=== PATIENT | female | born 1940 | race Caucasian/White ===

== ENCOUNTER 2020-04-07 19:23 | Inpatient (IN) | payer MEDICARE, OTHER ==
[~2020-04-07] VITALS: Ht 162.6 cm; Wt 60.8 kg
--- NOTE | 2020-04-07 20:07 | NUR ---
BIBS FROM HOME TO ER BED 7. AAOX4. NOT IN RESP DISTRESS. AMBULATORY. CAME IN FOR CONSTIPATION. PER PT SHE HAS BEEN HAVING BM ISSUES AND WORST TODAY. SHE IS REPORT PAIN IN HER RECTUM WHICH SHE DISCRIBES IF SHE HAVE A BRICK IN HER RECTUM. PT IS HAVING DIFFICULTY SITTING DOWN. PT IS ALSO COMPLAINING OF UNCONTROLLED WATTERY DIARRHEA AND DIFFICULTY URINATING. MD WAS AT THE BEDSIDE FOR EVAL. ORDERS RECEIVED, NOTED AND CARRIED OUT.
[2020-04-07 20:39] LABS: BASOPHILS # (AUTO) 0.1 /CMM (0.0-0.2); BASOPHILS % (AUTO) 0.5 % (0.0-2.0); HEMATOCRIT 43 % (33-45); HEMOGLOBIN 14.2 g/dL (11.5-14.8); LYMPHOCYTES # (AUTO) 0.7 /CMM (0.8-4.8); LYMPHOCYTES % (AUTO) 4.2 % (20.0-44.0); MEAN CORPUSCULAR HGB CONC 33 g/dl (31.0-36.0); MEAN CORPUSCULAR VOLUME 92 fL (82-100); MONOCYTES # (AUTO) 1.1 /CMM (0.1-1.30); MONOCYTES % (AUTO) 6.7 % (2.0-12.0); NEUTROPHILS # (AUTO) 13.9 /CMM (1.8-8.9); NEUTROPHILS % (AUTO) 88.6 % (43.0-81.0); PLATELET COUNT (AUTO) 263 /CMM (150-450); RED BLOOD CELL COUNT(AUTO) 4.65 MIL/uL (4.0-5.2); WHITE BLOOD COUNT (AUTO) 15.7 K/uL (4.3-11.0)
[2020-04-07 20:46] LABS: CREATININE 0.8 mg/dL (0.6-1.3); POTASSIUM 4.6 mmol/L (3.5-5.1)
--- NOTE | 2020-04-07 21:17 | NUR ---
URINE OUTPUT 550ML. AWARE
[2020-04-07 21:18] LABS: APPEARANCE,URINE Clear (CLEAR); BILIRUBIN,URINE Negative (NEGATIVE); BLOOD, URINE Small Ery/uL (NEGATIVE); COLOR,URINE Yellow (YELLOW); KETONES,URINE Negative (NEGATIVE); LEUKOCYTE ESTERASE ,URINE Negative (NEGATIVE); NITRITE, URINE Negative (NEGATIVE); PROTEIN,URINE Negative (NEGATIVE); UGLUCOSE Negative (NEGATIVE); UROBILINOGEN,URINE 0.2 EU/dL (0.2)
[2020-04-07] MEDS ORDERED: PIPERACILLIN /TAZOBACTAM 3.375 G VIAL IV ONE (21:27)
[2020-04-07 21:30] LABS: BACTERIA,URINE None seen /HPF (None Seen); SQUAMOUS EPITHELIAL CELL,UR Few /HPF (None Seen); WBC,URINE 0-2 /HPF (0-3)
[2020-04-07] MEDS ORDERED: PIPERACILLIN /TAZOBACTAM 3.375 G in IV D5W 50 ML IV ONE (21:30)
[2020-04-07] MEDS ORDERED: IV NS 0.9% 1,000 ML IV PRN (21:56)
[2020-04-07] MEDS ORDERED: HYDROCODONE/APAP 5/325MG 1 EACH TABLET PO PRN (22:00)
[2020-04-07] MEDS ORDERED: Z GUARD REMEDY 2 OZ OINT TP PRN (22:00)
[2020-04-07] MEDS ORDERED: MAG HYDROX/AL HYDROX/SIMETH 30 ML UDC PO PRN (22:00)
[2020-04-07] MEDS ORDERED: MORPHINE SULFATE INJ 2 MG/ML DISP.SYRIN IV PRN (22:00)
[2020-04-07] MEDS ORDERED: MAGNESIUM HYDROXIDE 30 ML UDC PO PRN (22:00)
[2020-04-07] MEDS ORDERED: ONDANSETRON HCL/PF 4 MG/2 ML VIAL IVP PRN (22:00)
[2020-04-07] MEDS ORDERED: ACETAMINOPHEN 325 MG TABLET PO PRN (22:00)
--- NOTE | 2020-04-07 22:03 | NUR ---
COVID SWAB COLLECTED. CALLED LAB FOR BILINGUAL RECRUITER
--- NOTE | 2020-04-07 22:26 | NUR ---
BED ASSIGNMENT 304-2
--- NOTE | 2020-04-07 23:05 | NUR ---
REPORT GIVEN TO ZANDER JARA FOR JOHN.
[2020-04-07 23:15] VITALS: BP 138/74
--- NOTE | 2020-04-07 23:15 | NUR ---
PRICING MANAGERMIXOLOGIST NOTE RECEIVED PATIENT VIA GURNEY. AMBULATED TO BED, STEADY GAIT. TOLERATING ROOM AIR. RESPIRATIONS ARE EVEN AND UNLABORED. NO S/S SOB NOTED. PATIENT STATES PAIN IS 8/10 IN BACK AND RECTUM. REFUSED TO HAVE PAIN MEDICATION, ASLO REFUSED HEATING PACK. EXTERNAL TELE MONITOR READS SINUS TACHYCARDIA HR 107. IN NO APPARENT DISTRESS. IV ACCESS IN LEFT HAND #20 PATENT AND SALINE LOCKED. GUTIERREZ CATHETER 16 FR IS PRESENT, DRAINING TO GRAVITY, URINE IS YELLOW AND CLEAR. INATAL PHYSICAL ASSESSMENT COMPLETED AT THIS TIME. PATIENT REFUSED SKIN ASSESSMENT. METAL SPRAYING MACHINE OPERATOR OBTAINED VITAL SIGNS AND COMPLETED BELONGINGS LIST. BED IS LOW AND LOCKED, HOB ELEVATED IN SEMI FOWLERS, SIDE RIALS UP X2. CALL LIGHT WITHIN REACH. WILL CONTINUE TO MONITOR.
--- NOTE | 2020-04-07 23:17 | NUR ---
PT TRANPORTED TO UNIT ON [address] WITH EMT AND RN AT BEDSIDE. NAD NOTED DURING TRANSPORT. PT AMBULATED FROM [facility] TO BED ON [facility].
[2020-04-08] MEDS: IV NS 0.9% 1,000 ML IV PRN ×2 (00:22→10:43)
[2020-04-08] MEDS: TEMAZEPAM 7.5 MG CAPSULE PO PRN (00:42)
--- NOTE | 2020-04-08 00:42 | NUR ---
ms rn note administered prn restoril 7.5 mg per request from patient for sleep. will continue to monitor.
[2020-04-08 04:00] VITALS: BP 156/75
[2020-04-08] MEDS ORDERED: ZOSYN IVPB 3.375 G in IV D5W 50ml IV ONE (04:00)
--- NOTE | 2020-04-08 04:15 | NUR ---
MS RN NOTE ADMINISTERED PRN TYLENOL 650MG FOR C/O HEADACHE. WILL CONTINUE TO MONITOR.
[2020-04-08] MEDS ORDERED: PIPERACILLIN /TAZOBACTAM 3.375 G VIAL IV ONE (04:48)
--- NOTE | 2020-04-08 04:51 | NUR ---
technician telecommunication systems note patient refused dvt pumps. educated but continues to refuse. will continue to monitor.
[2020-04-08] MEDS ORDERED: PIPERACILLIN /TAZOBACTAM 3.375 G in IV D5W 50 ML IV SCH (05:00)
[2020-04-08 06:54] LABS: BASOPHILS % (AUTO) 0.1 % (0.0-2.0); HEMATOCRIT 41 % (33-45); HEMOGLOBIN 13.7 g/dL (11.5-14.8); LYMPHOCYTES # (AUTO) 0.9 /CMM (0.8-4.8); LYMPHOCYTES % (AUTO) 6.5 % (20.0-44.0); MEAN CORPUSCULAR HGB CONC 34 g/dl (31.0-36.0); MEAN CORPUSCULAR VOLUME 91 fL (82-100); MONOCYTES # (AUTO) 1.2 /CMM (0.1-1.30); MONOCYTES % (AUTO) 8.6 % (2.0-12.0); NEUTROPHILS # (AUTO) 11.9 /CMM (1.8-8.9); NEUTROPHILS % (AUTO) 84.8 % (43.0-81.0); PLATELET COUNT (AUTO) 231 /CMM (150-450); RED BLOOD CELL COUNT(AUTO) 4.51 MIL/uL (4.0-5.2); WHITE BLOOD COUNT (AUTO) 14.1 K/uL (4.3-11.0)
[2020-04-08] MEDS ORDERED: BISACODYL SUPP (10 MG) 10 MG/SUPP.RECT SUPP.RECT RC PRN (07:00)
[2020-04-08 07:17] LABS: CALCIUM, SERUM 8.6 mg/dL (8.5-10.1); CREATININE 0.6 mg/dL (0.6-1.3); PHOSPHORUS 2.9 mg/dL (2.5-4.9); POTASSIUM 4.1 mmol/L (3.5-5.1)
[2020-04-08 07:21] LABS: THYROID STIMULATING HORMONE 1.535 uIU/mL (0.358-3.74)
--- NOTE | 2020-04-08 07:25 | NUR ---
television analyzer note endorse to day shift to obtain chemical prophylaxis for patient, VTE score is 3.
--- NOTE | 2020-04-08 07:26 | NUR ---
SERVICE STATION CONSOLE OPERATOR CLOSING NOTE PATIENT IN BED. TOLERATING ROOM AIR. RESPIRATIONS ARE EVEN AND UNLABORED. NO RESPIRATORY DISTRESS. C/O PAIN THROUGHOUT BUT REFUSED PAIN MEDICATIONS THAT ARE AVAILABLE. EXTERNAL TELE MONITOR READS SINUS RHYTHM HR 90S. NO DISTRESS. IV ACCESS MAINTAINED IN LEFT HAND #20 RUNNING NS@100ML/HR. GUTIERREZ CATHETER MAINTAINED, YELLOW, OUTPUT 1550ML. BED REMAINS LOW AND LOCKED, HOB ELEVATED IN SEMI FOWLERS, SIDE RIALS UP X2. CALL LIGHT WITHIN REACH. WILL ENDORSE TO NEXT SHIFT.
--- NOTE | 2020-04-08 07:45 | NUR ---
TELE/RN OPENING NOTES RECEIVED PATIENT ON BED. NO APPARENT DISTRESS NOTED. DENIES PAIN AT THIS TIME. PATIENT ON TELE MONITOR SR 96 BPM. WILL CONTINUE TO MONITOR.
[2020-04-08] MEDS: PANTOPRAZOLE 40 MG TABLET.DR PO SCH (08:35)
[2020-04-08 08:58] VITALS: BP 143/79
--- NOTE | 2020-04-08 09:00 | NUR ---
MS/RN NOTES PATIENT REFUSED TO PUT ON DVT PUMP. EXPLAINED THE RISK AND BENEFITS. WILL CONTINUE TO MONITOR.
--- NOTE | 2020-04-08 10:08 | NUR ---
Developmental Training Counselor Consult: Developmental Training Counselor social Veronica worker conducted a chart review and met with the patient at bedside for advanced care directive. Patient presented with inital pain to the back and rectum on 04/07/2020. Patient was alert and oriented x4. Patient does not have anyone to name as an emergency contact at the moment after her . Patient does not report any sign of depression after . Patient was skeptical about naming anyone as an emergency contact as she does not want to ask anyone because "she doesn't believe in that". Patient lives at home and continues to work on occasion from home to keep busy as she does not want to stop all together. Patient has friends as her support system to rely on but does not feel comfortable asking them to discuss her view on an advanced care directive. Patient reported that she has a power of instrument panel assembler on her will and will likely name that individual again. Patient seemed skeptical about an advanced care directive. SW informed her that she can look over the paperwork and if she has any questions to inform nurses that she would like to speak with social insurance adviser again. [employer] Lead
[2020-04-08] MEDS: PIPERACILLIN /TAZOBACTAM 3.375 G in IV D5W 100 ML IV SCH ×2 (10:15→17:26)
--- NOTE | 2020-04-08 10:35 | NUR ---
MS/RN NOTES PATIENT COMPLAINED OF RECTAL PAIN RATED 10/10. MORPHINE 2MG IV WAS GIVEN WILL CONTINUE TO MONITOR.
[2020-04-08 16:00] VITALS: BP 163/85
--- NOTE | 2020-04-08 17:01 | NUR ---
MS/RN NOTES TAP ENEMA WAS DONE. PATIENT HAD BOWEL MOVEMENT. MD IS AWARE. WILL CONTINUE TO MONITOR.
--- NOTE | 2020-04-08 18:42 | NUR ---
MS/RN CLOSING NOTES PATIENT IN BED. ALERT AND ORIENTED X4. PATIENT IN NO APPARENT RESPIRATORY DISTRESS NOTED. DENIES PAIN AT THIS TIME. IV ACCESS AT LEFT HAND # 20 G WITH IV FLUID OF NS 1 L AT 100 ML/HR ON AND INFUSING WELL. SEEN AND EXAMINED BY MD WITH ORDERS MADE AND CARRIED OUT. ALL DUE MEDICATION WAS GIVEN. SAFETY PRECAUTION IN PLACED. CHECKED PATIENT EVERY 2 HOURS. BED IN LOWEST POSITION AND LOCKED. SIDE RAILS UP X 2. CALL LIGHT WITHIN REACH. WILL ENDORSED TO SUGAR SAMPLER FOR JOHN.
--- NOTE | 2020-04-08 19:55 | NUR ---
MS RN NOTES RECEIVED PATIENT IN BED. ALERT AND ORIENTED X4. PATIENT IN NO APPARENT RESPIRATORY DISTRESS NOTED. DENIES PAIN AT THIS TIME. IV ACCESS AT LEFT HAND # 20 G WITH IV FLUID OF NS 1 L AT 100 ML/HR ON AND INFUSING WELL. GUTIERREZ CATHETER INTACT AND DRAINING WELL WITH A SAFETY MEASURES IN PLACE. CALL LIGHT WITH IN EASY REACH. BED IN LOW LOCKED POSITIONED. ALL NEEDS ANTICIPATED. WILL CONTINUE TO MONITOR ACCORDINGLY.
[2020-04-08 20:00] VITALS: BP 136/67
[2020-04-08 20:19] VITALS: BP 136/67
[2020-04-09] MEDS: PIPERACILLIN /TAZOBACTAM 3.375 G in IV D5W 100 ML IV SCH ×3 (02:02→17:15)
[2020-04-09] MEDS: IV NS 0.9% 1,000 ML IV PRN (05:05)
--- NOTE | 2020-04-09 06:07 | NUR ---
MS RN NOTES ALL NEEDS ATTENDED AND MET, ABLE TO REST AND SLEPT AT INTERVALS, PATIENT IN BED. ALERT AND ORIENTED X4. PATIENT IN NO APPARENT RESPIRATORY DISTRESS NOTED. DENIES PAIN AT THIS TIME. IV ACCESS AT LEFT HAND # 20 G WITH IV FLUID OF NS 1 L AT 100 ML/HR ON AND INFUSING WELL. GUTIERREZ CATHETER INTACT AND DRAINING WELL WITH A SAFETY MEASURES IN PLACE. CALL LIGHT WITH IN EASY REACH. BED IN LOW LOCKED POSITIONED. ALL NEEDS ANTICIPATED. WILL ENDORSE TO AM NURSE FOR CONTINUITY OF CARE.
[2020-04-09 07:00] LABS: BASOPHILS % (AUTO) 0.4 % (0.0-2.0); EOSINOPHILS % (AUTO) 0.7 % (0.0-6.0); HEMATOCRIT 37 % (33-45); HEMOGLOBIN 12.4 g/dL (11.5-14.8); LYMPHOCYTES # (AUTO) 1.3 /CMM (0.8-4.8); LYMPHOCYTES % (AUTO) 12.2 % (20.0-44.0); MEAN CORPUSCULAR HGB CONC 33 g/dl (31.0-36.0); MEAN CORPUSCULAR VOLUME 91 fL (82-100); MONOCYTES # (AUTO) 1.1 /CMM (0.1-1.30); NEUTROPHILS # (AUTO) 8.2 /CMM (1.8-8.9); NEUTROPHILS % (AUTO) 76.7 % (43.0-81.0); PLATELET COUNT (AUTO) 223 /CMM (150-450); RED BLOOD CELL COUNT(AUTO) 4.06 MIL/uL (4.0-5.2); WHITE BLOOD COUNT (AUTO) 10.7 K/uL (4.3-11.0)
--- NOTE | 2020-04-09 07:15 | NUR ---
MS/RN - Assessment Patient is alert and oriented x 4, states feeling better, afebrile, denies pain, no apparent distress, stable on room air. IVF NS at 100 ml/hr infusing well on the left hand with no signs of infiltration. Ehrnandez catheter in place for urinary retention. Morning labs reviewed, no critical results seen. Fall and aspiration precautions maintained. Will continue with current medical management.
[2020-04-09 07:25] LABS: CALCIUM, SERUM 8.3 mg/dL (8.5-10.1); CREATININE 0.6 mg/dL (0.6-1.3); POTASSIUM 3.6 mmol/L (3.5-5.1)
[2020-04-09] MEDS: PANTOPRAZOLE 40 MG TABLET.DR PO SCH (07:41)
[2020-04-09 08:00] VITALS: BP 116/67
[2020-04-09] MEDS ORDERED: LEVO500T23 PO (08:19)
--- NOTE | 2020-04-09 13:30 | NUR ---
MS/RN - Hernandez Hernandez catheter d/c'd per order, catheter removed without difficulty, tip intact, no clots or bleeding seen, denies pain, tolerated procedure well. Patient instructed to notify RN of first void.
--- NOTE | 2020-04-09 15:38 | NUR ---
MS/RN - Notes Dr. Bhat made aware that pt c/o pressure/block in her rectum and some mild vaginal bleeding but denies abdominal pain. Patient states that she is not ready to go home yet and afraid that she may come back to the ER again. Per MD, hold discharge today.
--- NOTE | 2020-04-09 18:47 | NUR ---
MS/RN - End of shift summary Patient had an episode of urinary retention, c/o bladder discomfort, bladder scan done, noted with 495 ml of urine. Patient refused straight cath but prefers Hernandez catheter to be placed. Patient stated "I don't want in and out catheter to be done every Q6 if I retain urine. I know my body and I don't have the urgency to urinate. MD made aware with order to insert Hernandez catheter. No further episodes of vaginal bleeding. All needs attended. Will endorse to night RN accordingly.
[2020-04-09 20:00] VITALS: BP 146/82
--- NOTE | 2020-04-09 20:00 | NUR ---
RN NOTES RECEIVED PT SLEEPING BUT AROUSABLE, NOT IN DISTRESS, NO PAIN NOTED, A/OX4, , CALL LIGHT WITHIN REACH, [id number], CONTINUE TO MONITOR
[2020-04-09] MEDS: TEMAZEPAM 7.5 MG CAPSULE PO PRN (21:53)
--- NOTE | 2020-04-09 22:10 | NUR ---
TELE/RN NOTES GIVE REPORT TO ZANDER ZAMORA. PATIENT IS ALERT AND ORIENTED 2-3 BENGALI SPEAKING. PATIENT MOST RECENT V/S TAKEN AND RECORDED BP(116/45) T(97.9) HR (80) RR (18) 02 SAT (96%). PATIENT ON RA WITH IV LINE @ R AC #20 ; NO IV FLUID RUNNING ( PT REFUSED ; MD AWARE). PATIENT TRANSFERRED TO MEDICAL SURGICAL ROOM 304 BED #1 VIA MEDICAL BED. ALL PATIENT BELONGINGS TRANSFERRED WITH THE PATIENT. PATIENT SAFETY WAS MAINTAINED, HOLLIS FERMIN RECEIVED THE PATIENT AND WILL CONTINUE CARE. Addendum: 04/10/20 at 0356 by STU KAUFFMAN RN RN NOTES WRONG NOTES FOR WRONG PATIENT.PLEASE DISREGARD. WILL ENTER TRANSFER DOCUMENTATION TO CORRECT PATIENT RECORD.
[2020-04-10] MEDS: IV NS 0.9% 1,000 ML IV PRN (02:10)
[2020-04-10] MEDS: PIPERACILLIN /TAZOBACTAM 3.375 G in IV D5W 100 ML IV SCH ×3 (02:10→17:10)
--- NOTE | 2020-04-10 06:38 | NUR ---
RN NOTES AWAKE, DENIES PAIN, NO SOB, MORNING CARE RENDERED, CALL LIGHT WITHIN REACH, [id number], PT. NEEDS ATTENDED
[2020-04-10] MEDS: PANTOPRAZOLE 40 MG TABLET.DR PO SCH (07:26)
--- NOTE | 2020-04-10 07:26 | NUR ---
MS/RN - Assessment Patient is alert and oriented x 4, afebrile, denies abdominal/bladder pain, still c/o rectal pressure, no apparent distress, stable on room air. IVF NS at 100 ml/hr infusing well on the LFA with no signs of infiltration. Hernandez catheter in place for urinary retention draining yellow urine. No labs ordered for today. Fall and aspiration precautions maintained. Possible discharge home today. Will continue with current medical management.
[2020-04-10 08:00] VITALS: BP 137/74
[2020-04-10 09:31] LABS: BASOPHILS % (AUTO) 0.4 % (0.0-2.0); EOSINOPHILS % (AUTO) 1.6 % (0.0-6.0); HEMATOCRIT 38 % (33-45); HEMOGLOBIN 12.8 g/dL (11.5-14.8); LYMPHOCYTES # (AUTO) 1.1 /CMM (0.8-4.8); LYMPHOCYTES % (AUTO) 14.2 % (20.0-44.0); MEAN CORPUSCULAR HGB CONC 33 g/dl (31.0-36.0); MEAN CORPUSCULAR VOLUME 91 fL (82-100); MONOCYTES # (AUTO) 0.6 /CMM (0.1-1.30); MONOCYTES % (AUTO) 7.6 % (2.0-12.0); NEUTROPHILS # (AUTO) 5.8 /CMM (1.8-8.9); NEUTROPHILS % (AUTO) 76.2 % (43.0-81.0); PLATELET COUNT (AUTO) 229 /CMM (150-450); RED BLOOD CELL COUNT(AUTO) 4.23 MIL/uL (4.0-5.2); WHITE BLOOD COUNT (AUTO) 7.6 K/uL (4.3-11.0)
[2020-04-10 09:58] LABS: CALCIUM, SERUM 8.4 mg/dL (8.5-10.1); CARBON DIOXIDE 26 mmol/L (21-32); CHLORIDE 108 mmol/L (98-107); CREATININE 0.5 mg/dL (0.6-1.3); GLUCOSE 128 mg/dL (74-106); POTASSIUM 3.2 mmol/L (3.5-5.1); SODIUM SERUM 141 mmol/L (136-145); UREA NITROGEN, BLOOD 8 mg/dL (7-18)
--- NOTE | 2020-04-10 13:54 | NUR ---
spoke with patient at bedside, states her has and she currently lives alone. States she is independent with adl's, does her own groceries and driving. She does not want to go to SNF. Her next door neighbor will provide ride when discharge. She currently does not have a pcp. Will [facility] for [facility]u after dc. [phone]. Addendum: 04/10/20 at 1359 by BEBE PALMA RN Amended: Links added.
--- NOTE | 2020-04-10 15:15 | NUR ---
MS/RN - Notes Patient c/o rectal pain, stated "I think my hemorrhoids is flaring up." Dr. Bhat made aware with order to apply Anusol cream per rectum Q6H PRN.
[2020-04-10] MEDS ORDERED: HYDROCORTISONE CR 30 GM TUBE RC PRN (15:30)
[2020-04-10 16:00] VITALS: BP 154/86
[2020-04-10] MEDS: POTASSIUM CHLORIDE 20 MEQ TAB.PRT.SR PO SCH ×2 (17:03→18:11)
--- NOTE | 2020-04-10 18:47 | NUR ---
MS/RN - End of shift summary Patient states feeling better, rectal pain improved, no further episodes of vaginal bleeding, potassium replacement given. Patient was educated on bladder retraining. All needs attended. Will continue with current plan of care.
[2020-04-10 20:00] VITALS: BP 159/91
[2020-04-11] MEDS: PIPERACILLIN /TAZOBACTAM 3.375 G in IV D5W 100 ML IV SCH ×2 (01:15→09:34)
[2020-04-11] MEDS: IV NS 0.9% 1,000 ML IV PRN (01:19)
--- NOTE | 2020-04-11 06:15 | NUR ---
MS RN NOTES AWAKE & RESPONSIVE. NOT IN ANY DISTRESS. NO SOB NOTED. DENIES ANY PAIN OR DISCOMFORT AT THIS TIME. WITH IVF INFUSING WELL. MONITORED ACCORDINGLY. CALL LIGHT WITHIN REACH. BED IN LOWEST POSITION. SR UP X 2 FOR SAFETY. WILL ENDORSE TO NEXT SHIFT.
[2020-04-11 06:29] LABS: BASOPHILS # (AUTO) 0.1 /CMM (0.0-0.2); BASOPHILS % (AUTO) 0.9 % (0.0-2.0); EOSINOPHILS % (AUTO) 2.7 % (0.0-6.0); HEMATOCRIT 38 % (33-45); HEMOGLOBIN 12.6 g/dL (11.5-14.8); LYMPHOCYTES # (AUTO) 1.2 /CMM (0.8-4.8); LYMPHOCYTES % (AUTO) 19.6 % (20.0-44.0); MEAN CORPUSCULAR HGB CONC 33 g/dl (31.0-36.0); MEAN CORPUSCULAR VOLUME 90 fL (82-100); MONOCYTES # (AUTO) 0.5 /CMM (0.1-1.30); MONOCYTES % (AUTO) 7.6 % (2.0-12.0); NEUTROPHILS # (AUTO) 4.3 /CMM (1.8-8.9); NEUTROPHILS % (AUTO) 69.2 % (43.0-81.0); PLATELET COUNT (AUTO) 248 /CMM (150-450); RED BLOOD CELL COUNT(AUTO) 4.19 MIL/uL (4.0-5.2); WHITE BLOOD COUNT (AUTO) 6.2 K/uL (4.3-11.0)
[2020-04-11 06:46] LABS: CALCIUM, SERUM 8.7 mg/dL (8.5-10.1); CREATININE 0.7 mg/dL (0.6-1.3); POTASSIUM 3.6 mmol/L (3.5-5.1)
[2020-04-11] MEDS: PANTOPRAZOLE 40 MG TABLET.DR PO SCH (07:58)
[2020-04-11 08:00] VITALS: BP 161/81
--- NOTE | 2020-04-11 08:00 | NUR ---
MS RN OPENING NOTES Received Patient resting in bed. A/O x 4. VS stable with no acute distress. Breathing even and unlabored on room air with no respiratory distress. Denies pain. No signs and symptoms of pain. Hernandez Cath in place and patent with clear yellow output noted. 22g LFA clean, intact, patent and flushing well with NS infusing at 100ml/hr. Safety precautions in place. Bed locked and set to lowest position with side rails x 2 up. All needs rendered at this time. Call light within reach. Will continue to monitor.
--- NOTE | 2020-04-11 09:20 | NUR ---
MS RN NOTES Removed Hernandez Cath at this time. Patient tolerated well. Will continue to monitor.
--- NOTE | 2020-04-11 10:25 | NUR ---
MS RN NOTES 22g PIV on LFA infiltrated and removed. Inserted 22g on RFA clean, intact, patent and flushing well with IV ABX infusing. Patient tolerated well.
[2020-04-11 16:00] VITALS: BP 155/73
--- NOTE | 2020-04-11 17:59 | NUR ---
MS MACHINE OPERATOR GENERAL NOTES Patient discharged for home at this time. Patient in stable condition. VS stable with no acute distress. Breathing even and unlabored on room air with no respiratory distress. Denies pain. No signs and symptoms of pain. Skin intact. Medication reconciliation and discharge orders reviewed and explained to Patient. Patient verbalized understanding. All belongings with Patient. Patient will follow up with PCP and Sade MATHEWS. Escorted Patient to the Lobby for safety. Patient picked up by friend.
== END 2020-04-11 17:47 | disposition home or self-care (01) | DRG 394 ==
LOC: ER 19:24 → TELE 22:50 → MED 04-08 08:47
PROVIDERS: ADMIT Nurse Practitioner Acute Care; ATTEND Internal Medicine
DX: K62.89 Other specified diseases of anus and rectum (principal); K51.20 Ulcerative (chronic) proctitis without complications; A08.4 Viral intestinal infection, unspecified; D35.02 Benign neoplasm of left adrenal gland; K56.41 Fecal impaction; D35.01 Benign neoplasm of right adrenal gland; D72.829 Elevated white blood cell count, unspecified; N39.490 Overflow incontinence; K76.89 Other specified diseases of liver; Z87.891 Personal history of nicotine dependence; R33.9 Retention of urine, unspecified
CPT/HCPCS: 36415; 74018; 80048-TC; 80061-TC; 81000-TC; 83690-TC; 83735-TC; 84100-TC; 84443-TC; 85025-TC; 87081-TC; 89055; G0378; J2270; J2543; J7030; J7060

== ENCOUNTER 2020-04-16 13:42 | Emergency (ER) | payer MEDICARE, OTHER ==
[~2020-04-16] VITALS: Ht 162.6 cm; Wt 61.2 kg
[~2020-04-16 13:42] MED LIST: LEVO500T23 PO
--- NOTE | 2020-04-16 13:57 | NUR ---
CAME IN FOR GENERALIZED WEAKNESS, NO BM X 5 DAYS, ADMITTED FOR PROCTITIS LAST WEEK. D/C'D TUESDAY, TO ER BED 8, HOOKED TO MONITOR, CHANGED TO HOSP GOWN, WARM BLANKET PROVIDED, PATIENT AAO X 4. BREATHING EVEN AND UNLABORED. DR DAY AT BEDSIDE
[2020-04-16 14:08] LABS: BASOPHILS # (AUTO) 0.1 /CMM (0.0-0.2); EOSINOPHILS % (AUTO) 1.2 % (0.0-6.0); HEMATOCRIT 42 % (33-45); HEMOGLOBIN 14.3 g/dL (11.5-14.8); LYMPHOCYTES # (AUTO) 2.1 /CMM (0.8-4.8); MEAN CORPUSCULAR HGB CONC 34 g/dl (31.0-36.0); MEAN CORPUSCULAR VOLUME 91 fL (82-100); MONOCYTES # (AUTO) 0.9 /CMM (0.1-1.30); MONOCYTES % (AUTO) 10.4 % (2.0-12.0); NEUTROPHILS # (AUTO) 5.5 /CMM (1.8-8.9); NEUTROPHILS % (AUTO) 63.4 % (43.0-81.0); PLATELET COUNT (AUTO) 317 /CMM (150-450); WHITE BLOOD COUNT (AUTO) 8.6 K/uL (4.3-11.0)
[2020-04-16 14:15] LABS: CALCIUM, SERUM 9.3 mg/dL (8.5-10.1); CARBON DIOXIDE 22 mmol/L (21-32); CHLORIDE 102 mmol/L (98-107); CREATININE 0.7 mg/dL (0.6-1.3); GLUCOSE 89 mg/dL (74-106); SODIUM SERUM 139 mmol/L (136-145); UREA NITROGEN, BLOOD 15 mg/dL (7-18)
--- NOTE | 2020-04-16 14:15 | NUR ---
CHASSIS DRIVER AT BEDSIDE
[2020-04-16 14:29] LABS: B-TYPE NATRIURETIC PEPTIDE 137 PG/ML (0-125)
[2020-04-16] MEDS ORDERED: IOHEXOL-300 100 ML VIAL IV ONE (15:02)
[2020-04-16] MEDS ORDERED: IV NS 0.9% 250 ML IV ONE (15:02)
[2020-04-16 15:26] LABS: ALBUMIN 3.9 g/dL (3.4-5.0); BILIRUBIN,DIRECT 0.2 mg/dL (0.0-0.2); BILIRUBIN,TOTAL 0.9 mg/dL (0.2-1.0); MAGNESIUM 2.3 mg/dL (1.8-2.4); TOTAL PROTEIN, SERUM 7.7 g/dL (6.4-8.2)
--- NOTE | 2020-04-16 16:03 | NUR ---
PATIENT IN BED, AWAKE, READING BOOK. HOOKED TO MONITOR, VSS. WILL CONTINUE TO MONITOR ACCORDINGLY
[2020-04-16 16:54] LABS: THYROID STIMULATING HORMONE 1.62 uIU/mL (0.358-3.74)
--- NOTE | 2020-04-16 17:34 | NUR ---
IV removed. Catheter intact and site benign. Pressure and 4x4 applied to site. No bleeding noted.Patient discharged to home in stable condition. Written and verbal after care instructions given. Patient verbalizes understanding of instruction.
[2020-04-16 17:35] VITALS: BP 139/84
== END 2020-04-16 17:36 | disposition home or self-care (01) ==
LOC: ER 13:42
DX: R53.83 Other fatigue (principal); R07.89 Other chest pain; K59.00 Constipation, unspecified; R19.7 Diarrhea, unspecified
CPT/HCPCS: 36415; 71045; 74177; 80048; 80076; 83690; 83735; 83880; 84439; 84443; 84484; 85025; 93005; 99285; J7050; Q9967